=== PATIENT | male | born 1955 | race Caucasian/White ===

== ENCOUNTER 2018-10-16 11:02 | Day surgery (SDC) | payer OTHER ==
[~2018-10-16] VITALS: Ht 172.7 cm; Wt 68.0 kg
[2018-10-16] MEDS ORDERED: NEURONTIN300 MG (11:09)
--- NOTE | 2018-10-16 11:16 | NUR ---
PTE ALERTA Y ORIENTADO X 3 ESFERAS, REFIERE LACERACION EN DEDO INDICE DE LA MANO RT CON UN TALADRO EN EL HOGAR. SE UBICA OFRECE CUIDADO LOCAL Y SE UBICA EN AREA DE OBSERVACION.
--- NOTE | 2018-10-16 11:33 | NUR ---
SE ORIENTA A PACIENTE SOBRE ORDENES MEDICAS, REFIERE COMPRENDER. SE COLECTAN MUESTRAS DE LABORATORIO ORDENADAS BAJO MEDIDAS ASEPTICAS. PENDIENTE A RESULTADOS DE LABORATORIO PARA RE-EVALUACION MEDICA.
== END 2018-10-16 13:00 | disposition home or self-care (01) ==
LOC: ER 11:02 → CIR.AMB 11:50 → ER 11:50 → CIR.AMB 13:00 → SEC-K 15:21 → ER 15:21 → EDSTATUS 16:00 → SEC-K 20:45
DX: S62.610A Displaced fracture of proximal phalanx of right index finger, initial encounter for closed fracture (principal); S56.421A Laceration of extensor muscle, fascia and tendon of right index finger at forearm level, initial encounter